=== PATIENT | female | born 1980 | race African-American/Black ===

== ENCOUNTER 2017-01-23 17:33 | Emergency (ER) | payer SELFPAY ==
[~2017-01-23] VITALS: Ht 152.4 cm; Wt 59.0 kg
[~2017-01-23 17:33] MED LIST: CEPH500C3 PO; TRAM50TA PO; ZOFR4TAB3 SL
[2017-01-23 17:47] VITALS: BP 122/87; PULSE 82; RESP 18; TEMP 98.6; O2SAT 100
[2017-01-23] MEDS ORDERED: AMOX875T PO (18:19)
--- NOTE | 2017-01-23 18:19 | PD ---
HPI Chief Complaint: ENT Complaint Time Seen by Provider: 18:11 Travel History International Travel<30 days: No Contact w/Intl Traveler<30days: No Traveled to known affect area: No History of Present Illness HPI 36-year-old Afro-Maldivian female presents with several day history of upper respiratory infection symptoms including headache, cough, postnasal drip, sore throat, and ear pain. Patient denies shortness of breath and wheezing. Patient denies heartburn or abdominal symptoms. Patient does smoke. She denies fever chills or other symptoms. She has no known drug allergies other than Toradol. PFSH Past Medical History Arthritis: No Asthma: No Heart Rhythm Problems: No Cardiovascular Problems: Yes (MITRAL VALVE PROLAPSE) High Cholesterol: No Chest Pain: No Congestive Heart Failure: No COPD: No Cerebrovascular Accident: No Diminished Hearing: No GERD: No Genitourinary: Yes Headaches: Yes Hepatitis: No Hiatal Hernia: No Hypertension: Yes (WHILE ON BIRTHCONTROL) Kidney Stones: Yes Musculoskeletal: Yes Neurologic: Yes Reproductive: No Respiratory: No Migraines: Yes Myocardial Infarction: No Renal Failure: No Seizures: Yes (WHILE WITH DAUGHTER) Sleep Apnea: No Ulcer: No Influenza Vaccination: No ?: Not LMP: 6 DAYS AGO : 5 Para: 2 Miscarriage: 3 Past Surgical History Abdominal Surgery: Yes (3 EXPLORATORY LAPS) Appendectomy: Yes Cardiac Surgery: No Section: Yes (X 3) Cholecystectomy: No Ear Surgery: No Endocrine Surgery: No Eye Surgery: No Genitourinary Surgery: No Gynecologic Surgery: Yes Neurologic Surgery: No Oral Surgery: Yes (WISDOM TEETH REMOVED) Thoracic Surgery: No Other Surgery: Yes ( SEVERAL LAPRASCOPIC PER PATIENT) Social History Alcohol Use: No Tobacco Use: Yes (1 PACK DAILY) Substance Use: No Allergies-Medications (Allergen,Severity, Reaction): Coded Allergies: Toradol (Verified Allergy, Severe, "THROAT SWELLS", 01/23/17) PATIENT REFUSES!!! Reported Meds & Prescriptions Reported Meds & Active Scripts Active Review of Systems Except as stated in HPI: all other systems reviewed are Neg General / Constitutional: Positive: Chills, No: Fever Eyes: No: Visual changes HENT: Positive: Headaches, Sore Throat, Rhinitis, Rhinorrhea, Congestion, Earache, No: Nosebleed, Neck Stiffness, Neck Pain, Gingival Bleeding, Dental Difficulties, Ear Discharge Cardiovascular: No: Chest Pain or Discomfort Respiratory: Positive: Cough, No: Shortness of Breath, Wheezing, Sneezing, Orthopnea, Pleuritic Pain Gastrointestinal: No: Nausea, Vomiting, Diarrhea, Abdominal Pain Genitourinary: No: Dysuria Musculoskeletal: No: Pain Skin: No Rash Neurologic: No: Weakness Psychiatric: No: Depression Endocrine: No: Polydipsia Hematologic/Lymphatic: No: Easy Bruising Physical Exam Narrative GENERAL: Patient appears mild distress. SKIN: Warm and dry. Normal color. Normal turgor. No rash. HEAD: Atraumatic. Normocephalic. EYES: Pupils equal and round. No scleral icterus. No injection or drainage. ENT: No nasal bleeding or discharge. Mucous membranes pink and moist. Pharynx is erythematous in the posterior pharynx with mild swelling and tonsillitis without exudate. Uvula is midline. Airway is patent. TMs are somewhat dull bilaterally. Mouth sinus tenderness to palpation and percussion in both maxillary and frontal sinuses. Postnasal drip is noted in the posterior pharynx as well. NECK: Trachea midline. Supple and nontender without significant lymphadenopathy. CARDIOVASCULAR: Regular rate and rhythm. RESPIRATORY: No accessory muscle use. Clear to auscultation. Breath sounds equal bilaterally. MUSCULOSKELETAL: Extremities without clubbing, cyanosis, or edema. No obvious deformities. NEUROLOGICAL: Awake and alert. No obvious cranial nerve deficits. Motor grossly within normal limits. Five out of 5 muscle strength in the arms and legs. Normal speech. PSYCHIATRIC: Appropriate mood and affect; insight and judgment normal. Data Data Last Documented VS Vital Signs Date Time Temp Pulse Resp B/P Pulse Ox O2 Delivery O2 Flow Rate FiO2 01/23/17 17:47 98.6 82 18 122/87 100 [facility] Medical Decision Making Medical Screen Exam Complete: Yes Emergency Medical Condition: Yes Differential Diagnosis Upper extremity infection. Sinusitis. Pharyngitis. Narrative Course Patient is medically stable at time of exam. Patient is treated with amoxicillin 875 twice a day 10 days. Patient can use [id number] cough medicine and Tylenol and ibuprofen as needed. Patient is encouraged to quit smoking as soon as possible. Patient to return to the ED if symptoms worsen or do not improve. Patient is recommended to follow-up with a local primary care physician. Diagnosis Primary Impression: Pharyngitis Qualified Code: J02.9 - Pharyngitis, unspecified etiology Referrals: Primary Care Physician Patient Instructions: General Instructions Additional Instructions: Patient is treated with amoxicillin 875 twice a day 10 days. Patient can use [id number] cough medicine and Tylenol and ibuprofen as needed. Patient is encouraged to quit smoking as soon as possible. Patient to return to the ED if symptoms worsen or do not improve. Patient is recommended to follow-up with a local primary care physician. Med/Other Pt SpecificInfo: Prescription(s) given Disposition: 01 DISCHARGE HOME Condition: Stable [place] Jan 23, 2017 18:19
== END 2017-01-23 18:54 | disposition home or self-care (01) ==
LOC: PHEFT 17:33
DX: J02.9 Acute pharyngitis, unspecified (principal); F17.210 Nicotine dependence, cigarettes, uncomplicated
CPT/HCPCS: 99283